=== PATIENT | female | born 1970 | race American Indian/Alaskan Native ===

== ENCOUNTER 2019-11-28 22:38 | Emergency (ER) | payer OTHER ==
[2019-11-28 22:51] VITALS: BP 131/81
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
[2019-11-29] MEDS ORDERED: traMADol 50 MG TAB PO ONE (00:52)
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
== END 2019-11-29 02:04 | disposition home or self-care (01) ==
LOC: ED 22:38
DX: M25.572 Pain in left ankle and joints of left foot (principal); M25.521 Pain in right elbow; Z90.710 Acquired absence of both cervix and uterus; Z79.899 Other long term (current) drug therapy; Z88.0 Allergy status to penicillin; V29.9XXA Motorcycle rider (driver) (passenger) injured in unspecified traffic accident, initial encounter; Y93.89 Activity, other specified; Y92.488 Other paved roadways as the place of occurrence of the external cause; Y99.8 Other external cause status
CPT/HCPCS: 99283